=== PATIENT | male | born 1970 | race Caucasian/White ===

== ENCOUNTER 2017-05-20 20:00 | Emergency (ER) | payer OTHER ==
[~2017-05-20] VITALS: Ht 182.9 cm; Wt 78.5 kg
[~2017-05-20 20:00] MED LIST: SULF-183 PO
[2017-05-20 20:08] VITALS: TEMP 36.7; Ht 182.9 cm; Wt 78.5 kg
[2017-05-20] MEDS ORDERED: SODIUM CHLORIDE 0.9% 1000ML 1,000 ML IV STA (20:51)
[2017-05-20] MEDS ORDERED: ACETAMINOPHEN 500 MG TAB PO STA (20:51)
[2017-05-20] MEDS ORDERED: IBUPROFEN 600 MG TAB PO STA (20:51)
[2017-05-20 21:38] LABS: BASO % 0.3 %; BASO ABS # 0.03 K/uL (0-0.2); COMPLETE YES; EOS % 0.2 %; HEMATOCRIT 43.6 % (42-52); IG% 0.1 %; LYMPH % 16.8 %; LYMPH ABS # 1.75 K/uL (1.2-3.4); MEAN CELL VOLUME 82.6 fL (80-100); MEAN CORPUSCULAR HEMOGLOBIN 29.2 pg (25-34); MEAN CORPUSCULAR HGB CONC 35.3 g/dl (32-36); MEAN PLATELET VOLUME 10.2 fL (7.4-10.4); MONO % 10.9 %; NEUT % 71.7 %; PLATELET COUNT 217 K/uL (130-400); RED BLOOD COUNT 5.28 M/uL (4.7-6.1); WHITE BLOOD COUNT 10.41 K/uL (4.8-10.8)
[2017-05-20 21:57] LABS: BUN/CREATININE RATIO 8.6 (10-20); CALCIUM 9.1 mg/dl (8.5-10.1); CREATININE 1.4 mg/dl (0.60-1.40); POTASSIUM 3.8 mmol/L (3.5-5.1)
[2017-05-20 22:13] LABS: URINE APPEARANCE CLEAR (CLEAR); URINE BILIRUBIN NEG (NEG); URINE COLOR DK YELLOW; URINE NITRITE NEG (NEG); URINE PH 5.5 (4.5-7.5); URINE SPECIFIC GRAVITY 1.029 (1.000-1.030); UROBILINOGEN NEG (NEG)
[2017-05-20 22:19] LABS: INR 1.1 (0.9-1.1); PARTIAL THROMBOPLASTIN RATIO 1.2; PROTHROMBIN TIME (PATIENT) 11.5 SECONDS (9.0-12.0)
[2017-05-20 22:24] LABS: MANUAL MICROSCOPIC REQUIRED? NO; REVIEW REQ? NO
[2017-05-20 22:30] LABS: LYME DISEASE AB IGG NEG (NEG); LYME DISEASE AB IGM EQUIVOCAL (NEG)
--- NOTE | 2017-05-20 22:32 | DIAGNOSTIC IMAGING REPORT ---
TWO VIEW CHEST CLINICAL HISTORY: Fever. FINDINGS: PA and lateral chest radiographs are compared to study dated 03/06/2013. The cardiomediastinal silhouette is unremarkable. The lungs and pleural spaces are clear. There is no pneumothorax. The bony thorax appears intact. IMPRESSION: No active disease in the chest. Electronically signed by: Eliud Dominguez M.D. 05/20/2017 10:31 PM Dictated Date/Time: 05/20/2017 10:29 PM
[2017-05-20] MEDS ORDERED: DOXYCYCLINE HYCLATE 100 MG CAP PO ONE (22:45)
--- NOTE | 2017-05-20 22:55 | DIAGNOSTIC IMAGING REPORT ---
CT SCAN OF THE ABDOMEN AND PELVIS WITHOUT IV CONTRAST CLINICAL HISTORY: Left flank pain. Fever. COMPARISON STUDY: Abdominal CT dated 12/27/2015. TECHNIQUE: CT scan of the abdomen and pelvis is performed from the lung bases to the proximal femora. Images are reviewed in the axial, sagittal, and coronal planes. IV contrast was not administered for this examination as per the referring clinician. Note that the examination was performed in suboptimal fashion without oral and IV contrast. Automated dose control exposure was utilized. CT DOSE: 599.24 mGy.cm FINDINGS: Lung bases: The heart is normal in size and without pericardial effusion. The lung bases are clear noting minimal dependent hypoventilatory change. Liver: The unenhanced liver is normal in size, contour, and attenuation. There is no intrahepatic biliary ductal dilatation. Gallbladder: Unremarkable. Spleen: Normal in size and attenuation. Pancreas: The unenhanced pancreas is grossly unremarkable. Adrenal glands: Unremarkable. Kidneys: The unenhanced kidneys are normal in size and without hydronephrosis. There are no renal calculi identified. There is no evidence of contour deforming renal mass lesion. Abdominal vasculature: The abdominal aorta is normal in course and caliber noting mild to moderate and age advanced atherosclerotic calcification. Bowel: The small bowel and colon are normal in course and caliber. The appendix is well-visualized and normal. Peritoneum: There is no intraperitoneal free air or abdominal ascites. There is a small fat-containing umbilical hernia. Lymphadenopathy: None. Pelvic viscera: The bladder, prostate, and seminal vesicles are normal as visualized. Skeletal structures: There is mild lumbosacral spondylosis. A posterior disc osteophyte complex is seen at L5-S1. No lytic or blastic lesions are seen. IMPRESSION: 1. There are no acute infectious or inflammatory findings in the abdomen or pelvis. 2. There is mild to moderate atherosclerotic calcification of the abdominal aorta, advanced for age. Electronically signed by: Eliud Dominguez M.D. 05/20/2017 10:54 PM Dictated Date/Time: 05/20/2017 10:49 PM
[2017-05-20] MEDS ORDERED: DOXY100C2 PO (23:29)
[2017-05-20 23:58] VITALS: BP 133/76; PULSE 81; O2SAT 96
--- NOTE | 2017-05-21 00:54 | EMERGENCY ROOM VISIT NOTE ---
History Report prepared by Dylan: Jerrica Yanez Under the Supervision of: Dr. Regan Guerra M.D. First contact with patient: 20:45 Chief Complaint: FEVER Stated Complaint: HIGH FEVER,BODYACHES,HEADACHE History of Present Illness The patient is a 47 year old male who presents to the Emergency Room with complaints of a persistent illness that began yesterday. He currently rates his discomfort as an 8/10 in severity. The patient states that yesterday he began developing body aches, chills, and a headache. His family notes that she took the patient's temperature and found that he had a fever of 101.5 degrees Fahrenheit. The patient reports a nonproductive cough. He denies any vomiting , but notes that he has not eaten anything today. The patient denies any rash or recent tick bites. He does note that he has pets and is also outside often. The patient additionally notes left flank pain, but denies any urinary symptoms or abdominal pain. He states that he took aspirin for his symptoms today without relief. Source of History: patient Onset: yesterday Position: other (global) Symptom Intensity: 8/10 Quality: other (illness) Timing: other (persistent) Associated Symptoms: + fevers, + chills, + headache, + cough, No vomiting, No abdominal pain, No urinary symptoms, No rash Note: Associated symptoms: body aches Review of Systems See HPI for pertinent positives & negatives. A total of 10 systems reviewed and were otherwise negative. Past Medical & Surgical Medical Problems: (1) Nontraumatic rotator cuff tear (2) shingles (3) Skin graft operation Family History Cancer Heart disease Hypertension Social History Smoking Status: Current Some Day Smoker Alcohol Use: none Drug Use: none Marital Status: single Housing Status: lives alone Occupation Status: unemployed Current/Historical Medications Scheduled Doxycycline Hyclate (Vibramycin), 100 MG PO BID Allergies Coded Allergies: Levofloxacin (Verified Allergy, Intermediate, Joint pain, 05/20/17) Physical Exam Vital Signs Date Time Temp Pulse Resp B/P (MAP) Pulse Ox O2 Delivery O2 Flow Rate FiO2 05/20/17 23:58 81 18 133/76 96 Room Air 05/20/17 22:10 89 18 161/87 05/20/17 20:08 36.7 103 18 145/83 97 Room Air Physical Exam Constitutional: Vital signs reviewed. Eyes: Pupils are equal round reactive to light. Conjunctiva are noninjected. ENT: Pharynx is clear without erythema or exudate. Mucous membranes are moist. Neck supple without meningeal signs. Respiratory: Clear to auscultation bilaterally. Breath sounds are equal bilaterally. Cardiovascular: Regular rate and rhythm. No rubs or gallops. GI: Soft, nondistended and nontender. Bowel sounds are present. No CVA tenderness. Musculoskeletal: No peripheral edema. No lower extremity tenderness. Integumentary: No cyanosis. Neurological: The patient is awake and alert. No focal deficits. Psychiatric: Normal affect. Medical Decision & Procedures ER Provider Diagnostic Interpretation: Radiology results as stated below per my review and the radiologist's interpretation: TWO VIEW CHEST CLINICAL HISTORY: Fever. FINDINGS: PA and lateral chest radiographs are compared to study dated 03/06/2013. The cardiomediastinal silhouette is unremarkable. The lungs and pleural spaces are clear. There is no pneumothorax. The bony thorax appears intact. IMPRESSION: No active disease in the chest. Electronically signed by: Eliud Dominguez M.D. 05/20/2017 10:31 PM Dictated Date/Time: 05/20/2017 10:[address] SCAN OF THE ABDOMEN AND PELVIS WITHOUT IV CONTRAST CLINICAL HISTORY: Left flank pain. Fever. COMPARISON STUDY: Abdominal CT dated 12/27/2015. TECHNIQUE: CT scan of the abdomen and pelvis is performed from the lung bases to the proximal femora. Images are reviewed in the axial, sagittal, and coronal planes. IV contrast was not administered for this examination as per the referring clinician. Note that the examination was performed in suboptimal fashion without oral and IV contrast. Automated dose control exposure was utilized. CT DOSE: 599.24 mGy.cm FINDINGS: Lung bases: The heart is normal in size and without pericardial effusion. The lung bases are clear noting minimal dependent hypoventilatory change. Liver: The unenhanced liver is normal in size, contour, and attenuation. There is no intrahepatic biliary ductal dilatation. Gallbladder: Unremarkable. Spleen: Normal in size and attenuation. Pancreas: The unenhanced pancreas is grossly unremarkable. Adrenal glands: Unremarkable. Kidneys: The unenhanced kidneys are normal in size and without hydronephrosis. There are no renal calculi identified. There is no evidence of contour deforming renal mass lesion. Abdominal vasculature: The abdominal aorta is normal in course and caliber noting mild to moderate and age advanced atherosclerotic calcification. Bowel: The small bowel and colon are normal in course and caliber. The appendix is well-visualized and normal. Peritoneum: There is no intraperitoneal free air or abdominal ascites. There is a small fat-containing umbilical hernia. Lymphadenopathy: None. Pelvic viscera: The bladder, prostate, and seminal vesicles are normal as visualized. Skeletal structures: There is mild lumbosacral spondylosis. A posterior disc osteophyte complex is seen at L5-S1. No lytic or blastic lesions are seen. IMPRESSION: 1. There are no acute infectious or inflammatory findings in the abdomen or pelvis. 2. There is mild to moderate atherosclerotic calcification of the abdominal aorta, advanced for age. Electronically signed by: Eliud Dominguez M.D. 05/20/2017 10:54 PM Dictated Date/Time: 05/20/2017 10:49 PM Laboratory Results 05/20/17 21:20 Red Blood Count 5.28, Mean Corpuscular Volume 82.6, Mean Corpuscular Hemoglobin 29.2, Mean Corpuscular Hemoglobin Concent 35.3, Mean Platelet Volume 10.2, Neutrophils (%) (Auto) 71.7, Lymphocytes (%) (Auto) 16.8, Monocytes (%) (Auto) 10.9, Eosinophils (%) (Auto) 0.2, Basophils (%) (Auto) 0.3, Neutrophils # (Auto ) 7.47, Lymphocytes # (Auto) 1.75, Monocytes # (Auto) 1.13, Eosinophils # (Auto ) 0.02, Basophils # (Auto) 0.03 05/20/17 21:20 Test 05/20/17 20:25 05/20/17 21:20 05/20/17 21:57 Urine Color DK YELLOW Urine Appearance CLEAR (CLEAR) Urine pH 5.5 (4.5-7.5) Urine Specific [place] 1.029 (1.000-1.030) Urine Protein TRACE (NEG) Urine Glucose (UA) NEG (NEG) Urine Ketones TRACE (NEG) Urine Occult Blood 1+ (NEG) Urine Nitrite NEG (NEG) Urine Bilirubin NEG (NEG) Urine Urobilinogen NEG (NEG) Urine Leukocyte Esterase NEG (NEG) Urine WBC (Auto) 1-5 /hpf (0-5) Urine RBC (Auto) 5-10 /hpf (0-4) Urine Hyaline Casts (Auto) 1-5 /lpf (0-5) Urine Epithelial Cells (Auto) 5-10 /lpf (0-5) Urine Bacteria (Auto) NEG (NEG) White Blood Count 10.41 K/uL (4.8-10.8) Red Blood Count 5.28 M/uL (4.7-6.1) Hemoglobin 15.4 g/dL (14.0-18.0) Hematocrit 43.6 % (42-52) Mean Corpuscular Volume 82.6 fL (80-100) Mean Corpuscular Hemoglobin 29.2 pg (25-34) Mean Corpuscular Hemoglobin Concent 35.3 g/dl (32-36) Platelet Count 217 K/uL (130-400) Mean Platelet Volume 10.2 fL (7.4-10.4) Neutrophils (%) (Auto) 71.7 % Lymphocytes (%) (Auto) 16.8 % Monocytes (%) (Auto) 10.9 % Eosinophils (%) (Auto) 0.2 % Basophils (%) (Auto) 0.3 % Neutrophils # (Auto) 7.47 K/uL (1.4-6.5) Lymphocytes # (Auto) 1.75 K/uL (1.2-3.4) Monocytes # (Auto) 1.13 K/uL (0.11-0.59) Eosinophils # (Auto) 0.02 K/uL (0-0.5) Basophils # (Auto) 0.03 K/uL (0-0.2) RDW Standard Deviation 39.1 fL (36.4-46.3) RDW Coefficient of Variation 13.0 % (11.5-14.5) Immature Granulocyte % (Auto) 0.1 % Immature Granulocyte # (Auto) 0.01 K/uL (0.00-0.02) Anion Gap 7.0 mmol/L (3-11) Est Creatinine Clear Calc Drug Dose 70.1 ml/min Estimated GFR () 67.9 Estimated GFR (Non- 58.6 BUN/Creatinine Ratio 8.6 (10-20) Calcium Level 9.1 mg/dl (8.5-10.1) Total Bilirubin 0.5 mg/dl (0.2-1) Direct Bilirubin 0.1 mg/dl (0-0.2) Aspartate Amino Transf (AST/SGOT) 12 U/L (15-37) Alanine Aminotransferase (ALT/SGPT) 17 U/L (12-78) Alkaline Phosphatase 107 U/L (45-117) Total Protein 7.2 gm/dl (6.4-8.2) Albumin 3.8 gm/dl (3.4-5.0) Lyme Disease IgG Antibody NEG (NEG) Prothrombin Time 11.5 SECONDS (9.0-12.0) Prothromb Time International Ratio 1.1 (0.9-1.1) Activated Partial Thromboplast Time 32.2 SECONDS (21.0-31.0) Partial Thromboplastin Ratio 1.2 Laboratory results as reviewed by me. Medications Administered Medications (Trade) Dose Ordered Sig/Vivienne Route Start Time Stop Time Status Last Admin Dose Admin Sodium Chloride 1,000 ml @ 999 mls/hr Q1H1M STAT IV 05/20/17 20:51 05/20/17 21:51 DC 05/20/17 21:44 999 MLS/HR Ibuprofen (Motrin Tab) 600 mg NOW STAT PO 05/20/17 20:51 05/20/17 20:54 DC 05/20/17 21:45 600 MG Acetaminophen (Tylenol Tab) 1,000 mg NOW STAT PO 05/20/17 20:51 05/20/17 20:54 DC 05/20/17 21:45 1,000 MG Doxycycline Hyclate (Vibramycin Cap) 100 mg ONE ONCE PO 05/20/17 22:45 05/20/17 22:46 DC 05/21/17 00:03 100 MG ED Course 2045: The patient was evaluated in room B12B. A complete history and physical exam was performed. 2050: Ordered Tylenol Tab 1000 mg PO, Motrin Tab 600 mg PO, Sodium Chloride 1000 ml @ 999 mls/hr IV. 2227: I reevaluated the patient and he is feeling better. I discussed the test results with him and I discussed the plan. He is going to have a abdominal CT to rule out a kidney stone. 2244: Ordered Vibramycin Cap 100 mg PO. 7: I reevaluated the patient and he is resting. I discussed his test results with him and I discussed the treatment plan. He verbalized complete understanding and agreement. He is ready to go home. Medical Decision This is a 47-year-old male who presents with fever, headache, joint pains and myalgias. Differential diagnosis includes Lyme disease, viral syndrome, UTI, pneumonia, kidney stone. I did perform a limited focused review of portions of the patient's old chart on the electronic medical record. The patient has had no recent pertinent visits to this hospital. Blood Pressure Screening: Patient was found to have an elevated blood pressure and was referred to their primary doctor for recheck and further treatment. Medication Reconciliation: I attest that I have personally reviewed the patient' s current medication list. I did evaluate the patient as noted above. The patient is presenting with symptoms consistent with Lyme disease. He has had symptoms for a brief time. IV access was established. I did treat him with Tylenol and Motrin. He was also given a liter of normal saline IV. I did order and personally review the patient's urinalysis and chest x-ray as described above. I did order and review the patient's blood work as noted in the electronic medical record. His white blood cell count is not elevated. Lyme IgM is equivocal. I did order a CT of the abdomen and pelvis. I did review the images myself as well as the radiology report as described above. There is no evidence of kidney stone. I did discuss the test results with the patient. I did recommend treatment with doxycycline. I did discuss return instructions with the patient and his . He was discharged with a prescription for 21 days of doxycycline. Impression Primary Impression: Lyme disease Additional Impression: Left flank pain Scribe Attestation The scribe's documentation has been prepared under my direct and personally reviewed by me in its entirety. I confirm that the note above accurately reflects all work, treatment, procedures, and medical decision making performed by me. Departure Information Dispostion Home / Self-Care Prescriptions Doxycycline Hyclate (VIBRAMYCIN) 100 Mg Cap 100 MG PO BID for 21 Days, #42 CAP Prov: Regan Guerra M.D. 05/20/17 Referrals No Doctor, Assigned (PCP) Edwige Pacheco M.D. Forms HOME CARE DOCUMENTATION FORM, IMPORTANT VISIT INFORMATION Patient Instructions ED Lyme Disease, My [facility] Additional Instructions You have been examined and treated today on an emergency basis only. This is not a substitute for, or an effort to provide, complete comprehensive medical care. It is impossible to recognize and treat all injuries or illnesses in a single emergency department visit. It is therefore important that you follow up closely with your physician. Call as soon as possible for an appointment. Return for worsening symptoms or if you develop chest pain, shortness of breath , severe headache or any other concerning symptoms. Problem Qualifiers
[2017-05-26 09:43] LABS: 18KDIGG BAND NONREACTIVE (NONREACTIVE); 23KDIGG BAND NONREACTIVE (NONREACTIVE); 23KDIGM BAND NONREACTIVE (NONREACTIVE); 28KDIGG BAND NONREACTIVE (NONREACTIVE); 30KDIGG BAND NONREACTIVE (NONREACTIVE); 39KDIGG BAND NONREACTIVE (NONREACTIVE); 39KDIGM BAND NONREACTIVE (NONREACTIVE); 41KDIGG BAND NONREACTIVE (NONREACTIVE); 41KDIGM BAND NONREACTIVE (NONREACTIVE); 45KDIGG BAND NONREACTIVE (NONREACTIVE); 58KDIGG BAND REACTIVE (NONREACTIVE); 66KDIGG BAND NONREACTIVE (NONREACTIVE); 93KDIGG BAND NONREACTIVE (NONREACTIVE)
== END 2017-05-20 23:58 | disposition home or self-care (01) ==
LOC: C.EDB 20:01
DX: A69.20 Lyme disease, unspecified (principal); R10.9 Unspecified abdominal pain; Z80.9 Family history of malignant neoplasm, unspecified; Z82.49 Family history of ischemic heart disease and other diseases of the circulatory system; F17.210 Nicotine dependence, cigarettes, uncomplicated

== ENCOUNTER → 2017-06-28 | Outpatient (CLI) | payer OTHER ==
[~2017-06-28] MED LIST changes: +DOXY100C2 PO; -SULF-183 PO
== END | disposition home or self-care (01) ==
LOC: C.PATHSPEC 16:59
PROVIDERS: ATTEND Nurse Practitioner Family
DX: R31.29 Other microscopic hematuria (principal)